=== PATIENT | female | born 1975 | race Caucasian/White ===

== ENCOUNTER 2019-05-15 18:27 | Emergency (ER) | payer OTHER ==
[2019-05-15 22:20] LABS: ABS Lymphocytes 1.7 10^3/ul (1.0-4.8); ABS Monocytes 0.6 10^3/ul (0-0.8); ABS Neutrophils 4.4 10^3/ul (1.5-7.7); Eosinophil % 0.1 %; Hematocrit 37 % (35-47); Hemoglobin 11.7 g/dL (12.0-16.0); Lymphocyte % 25.4 %; Mean Corpuscular HGB Conc 31 g/dL (31-36); Mean Corpuscular Hemoglobin 28 pg (27-31); Mean Corpuscular Volume 88 fL (80-97); Nucleated Red Blood Cells % 0.2; Red Blood Count 4.27 10^6 /uL (3.70-4.87); Red Cell Distribution Width 18 % (10-15); White Blood Count 6.7 10^3/uL (3.5-10.8)
[2019-05-15 22:30] LABS: Albumin 3.6 g/dL (3.2-5.2); Calcium 8.7 mg/dL (8.6-10.3); Potassium 4.4 mmol/L (3.5-5.0); Total Bilirubin 0.2 mg/dL (0.2-1.0)
[2019-05-15 22:36] LABS: Albumin/Globulin Ratio 1.3 (1-3); BUN/Creatinine Ratio 21.3 (8-20); EGFR African American 55.3 (>60); EGFR Non-African American 45.7 (>60); Globulin 2.8 g/dL (2-4); Total Protein 6.4 g/dL (6.4-8.9)
[2019-05-15 22:38] LABS: Platelet Count Platelets clumped. 10^3/uL (150-450)
[2019-05-15 22:47] LABS: Troponin I 0.01 ng/mL (<0.04)
[2019-05-15 22:51] LABS: HCG Pregnancy 1.34 mIU/mL
--- NOTE | 2019-05-15 23:02 | ED ---
Syncope/Near Syncope - HPI Summary HPI Summary: Pt is a 44 y/o F presenting to the ED with a chief complaint of syncope. Per the pts boyfriend, she has been zoning out as well as spontaneously falling asleep intermittently over the past week. Pt states that she is not aware when this happens, and her boyfriend states she will stay in this state until awoken by him. When she does wake up, she is very confused. The pt reports edema in her R foot, numbness in lips, severe R-sided flank pain worsening over the past week, and feeling feverish. She denies trauma to the R foot. 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 - History Of Current Complaint Chief Complaint: EDSyncope Time Seen by Provider: 05/15/19 21:57 Hx Obtained From: Patient, Family/Emanations Analysis Technician - boyfriend Onset/Duration: Sudden Onset, Lasting Minutes Timing: Minutes Context: Other - all variable d/t frequency/variation of episodes. Activity At Onset: At Rest Associated Head Trauma: No Aggravating Factor(s): Nothing Alleviating Factor(s): Spontaneous Resolution Associated Signs And Symptoms: Numbness - lips, Other - edema R foot PMH/Surg Hx/FS Hx/Imm Hx Previously Healthy: Yes Cardiovascular History: Reports: Hx Hypertension, Hx Supraventricular Ventricular Tachycardia Respiratory History: Reports: Hx Asthma History: Reports: Hx Chronic Renal Failure Musculoskeletal History: Reports: Other Musculoskeletal History - L-sided below knee amputation Neurological History: Reports: Other Neuro Impairments/Disorders - spina bifida - Surgical History Surgical History: Yes Infectious Disease History: No Infectious Disease History: Reports: Hx of Known/Suspected MRSA Denies: Traveled Outside the [place] in Last 30 Days - Family History Known Family History: Negative: Diabetes - Social History Alcohol Use: Occasionally Hx Substance Use: Yes Substance Use Type: Reports: Marijuana Hx Tobacco Use: Yes Smoking Status (MU): Heavy Every Day Tobacco Smoker Review of Systems Positive: flank pain - right Positive: Edema - R foot. Negative: Other - trauma to R foot Neurological: Other - confusion Positive: Numbness - lips, Syncope All Other Systems Reviewed And Are Negative: Yes Physical Exam - Summary Physical Exam Summary: Constitutional: Well-developed, Well-nourished, Alert. (-) Distressed Skin: Warm, Dry HENT: Normocephalic; Atraumatic Eyes: Conjunctiva normal Neck: Musculoskeletal ROM normal neck. (-) JVD, (-) Stridor, (-) Tracheal deviation Cardio: Rhythm regular, rate normal, Heart sounds normal; Intact distal pulses; Radial pulses are 2+ and symmetric. (-) Murmur Pulmonary/Chest wall: Effort normal. (-) Respiratory distress, (-) Wheezes, (-) Rales Abd: Soft, (-) tenderness, (-) Distension, (-) Guarding, (-) Rebound Musculoskeletal: (-) Edema Lymph: (-) Cervical adenopathy Neuro: Alert, Oriented x3 Psych: Mood and affect Normal Triage Information Reviewed: Yes Vital Signs On Initial Exam: Initial Vitals Temp Pulse Resp BP Pulse Ox 98 F 77 18 137/88 98 05/15/19 18:29 05/15/19 18:29 05/15/19 18:29 05/15/19 18:29 05/15/19 18:29 Vital Signs Reviewed: Yes - Kwan Coma Scale Best Eye Response: 4 - Spontaneous Best Motor Response: 6 - Obeys Commands Best Verbal Response: 5 - Oriented Coma Scale Total: 15 Procedures - Sedation Patient Received Moderate/Deep Sedation with Procedure: No Diagnostics - Vital Signs Vital Signs Temp Pulse Resp BP Pulse Ox 05/15/19 18:29 98 F 77 18 137/88 98 - Laboratory Lab Results: Lab Results 05/15/19 05/15/19 05/15/19 Range/Units 21:57 22:04 22:07 WBC 6.7 (3.5-10.8) 10^3/uL RBC 4.27 (3.70-4.87) 10^6 /uL Hgb 11.7 L (12.0-16.0) g/dL Hct 37 (35-47) % MCV 88 (80-97) fL MCH 28 (27-31) pg MCHC 31 (31-36) g/dL RDW 18 H (10-15) % Plt Count Platelets clumped. H (150-450) 10^3/uL MPV Not Reportable Neut % (Auto) 65.5 % Lymph % (Auto) 25.4 % Harmon % (Auto) 8.6 % Eos % (Auto) 0.1 % Baso % (Auto) 0.4 % Absolute Neuts (auto) 4.4 (1.5-7.7) 10^3/ul Absolute Lymphs (auto) 1.7 (1.0-4.8) 10^3/ul Absolute Monos (auto) 0.6 (0-0.8) 10^3/ul Absolute Eos (auto) 0.0 (0-0.6) 10^3/ul Absolute Basos (auto) 0.0 (0-0.2) 10^3/ul Absolute Nucleated RBC 0.0 10^3/ul Nucleated RBC % 0.2 Sodium 142 (135-145) mmol/L Potassium 4.4 (3.5-5.0) mmol/L Chloride 118 H (101-111) mmol/L Carbon Dioxide 20 L (22-32) mmol/L Anion Gap 4 (2-11) mmol/L BUN 27 H (6-24) mg/dL Creatinine 1.27 H (0.51-0.95) mg/dL Est GFR ( Amer) 55.3 (>60) Est GFR (Non-Af Amer) 45.7 (>60) BUN/Creatinine Ratio 21.3 H (8-20) Glucose 94 (70-100) mg/dL Calcium 8.7 (8.6-10.3) mg/dL Total Bilirubin 0.20 (0.2-1.0) mg/dL AST 10 L (13-39) U/L ALT 7 (7-52) U/L Alkaline Phosphatase 86 (34-104) U/L Troponin I 0.01 (<0.04) ng/mL B-Natriuretic Peptide 15 (<=100) pg/mL Total Protein 6.4 (6.4-8.9) g/dL Albumin 3.6 (3.2-5.2) g/dL Globulin 2.8 (2-4) g/dL Albumin/Globulin Ratio 1.3 (1-3) Beta HCG, Quant 1.34 mIU/mL Result Diagrams: 05/15/19 22:07 05/15/19 21:57 Lab Statement: Any lab studies that have been ordered have been reviewed, and results considered in the medical decision making process. - CT Brain CT CT Interpretation Completed By: Radiologist Summary of CT Findings: Right frontal approach ventriculostomy catheter is terminating in the left frontal horn just to left of the midline. Bilateral lateral ventricles and third ventricles are enlarged. Fourth ventricle is slitlike. Findings are concerning for hydrocephalus.Comparison with prior studies is recommended. Left suboccipital decompression surgery. 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 No evidence of acute infarct. No midline shift. ED physician has reviewed this report. - EKG 1952 Cardiac Rate: NL - 76bpm EKG Rhythm: 1st Degree HB ST Segment: Normal Ectopy: None Summary of EKG Findings: EKG at 1952 shows NSR at 76bpm with biphasic T-wave in v2 and 1st degree heart block. Re-Evaluation - Re-Evaluation 1st re-eval Re-Evaluation Time: 01:00 Change: Unchanged Comment: I discussed the plan with the patient after speaking with Dr. Roland. She states that her last CT scan of her brain was done in [place], [place], for comparison. However, she does not want to stay in the hospital, as she has to go to court in the morning for a child custody case. If we cannot access her medical records within the next 30 minutes, she states she will come back in the morning after her court case. 2nd re-eval Re-Evaluation Time: 01:30 Change: Unchanged Comment: I spoke with staff at the hospital in [place] where her last CT was done. Pt's CT scan is unchanged from prior. Course/Dx Course Of Treatment: Patient is here with episodes of possible absence seizure activity. Patient had no episodes while in the ED. Patient is new to town from [place]. Patient had blood or performed which is grossly unremarkable. Patient had a remote EKG. Patient had a CT scan which showed hydrocephalus with a CHIP TUNER shunt present. Per patient, her last CT scan was in [facility]. Patient gave me permission to call the physician in the emergency department at that hospital and the CT read was read to me by them. Patient had a CT scan in 2009 which showed identical results to her one today. Neurology was called and recommended admission for EEG. Patient had Court in the morning for child custody and did not want to be admitted. Patient is planning to come back for reevaluation following her court case. And patient - Diagnoses Provider Diagnoses: Seizure Discharge ED - Sign-Out/Discharge Documenting (check all that apply): Patient Departure - Discharge Plan Condition: Stable Disposition: HOME Patient Education Materials: New-Onset Seizure in Adults (ED) Referrals: Care [facility] [Outside] Additional Instructions: Please contact [facility] within the next 1-3 days to find a primary care provider in the area that you can further follow up with about this issue. Come back to the emergency department with any new or worsening symptoms, such as intractable vomiting, one-sided weakness, or increased severity or frequency of these episodes. - Billing Disposition and Condition Condition: STABLE Disposition: Home - Attestation Statements Document Initiated by Scribe: Yes Documenting Scribe: Pam Simmons Provider For Whom Kareemibe is Documenting (Include Credential): Dannie Tong MD. Scribe Attestation: Pam Islas, scribed for Dannie Tong MD. on 05/16/19 at 0436. Scribe Documentation Reviewed: Yes Provider Attestation: The documentation as recorded by the scribe, Pam Simmons accurately reflects the service I personally performed and the decisions made by me, Dannie Tong MD. Status of Scribe Document: Viewed Consult Consult: [id number] - I spoke with Dr. Roland about the pt's present condition. He recommended trying to get her medical records from [place], [place]. If I'm unable to obtain the medical records, the pt should be admitted to [facility] to try and get the records tomorrow, during the day. If anything with the patient changes during the course of her ED stay, she should be transferred to a higher level of care facility.
[2019-05-16 01:41] VITALS: BP 121/81
== END 2019-05-16 01:56 | disposition home or self-care (01) ==
LOC: ED 18:27
DX: R56.9 Unspecified convulsions (principal); I10 Essential (primary) hypertension; I47.1 Supraventricular tachycardia; J45.909 Unspecified asthma, uncomplicated; F17.200 Nicotine dependence, unspecified, uncomplicated; Z93.6 Other artificial openings of urinary tract status; Z89.511 Acquired absence of right leg below knee
CPT/HCPCS: 36415; 70450; 80053; 83880; 84484; 84702; 85025; 93005; 99283

== ENCOUNTER 2019-07-30 17:52 | Emergency (ER) | payer MEDICARE, OTHER ==
[2019-07-30] MEDS ORDERED: NS 0.9% 1000 ML** 1,000 ML IV ONE (18:48)
--- NOTE | 2019-07-30 18:50 | ED ---
Abdominal Pain/Female - HPI Summary HPI Summary: 44-year-old female with significant past medical history of spina bifida, left below the knee at the patient, kidney stones, right sided urostomy with stent replaced in March 2019 presents the emergency department today complaining of right flank pain. Patient states her right kidney function is at 15%. Patient endorses 7 out of 10 burning right flank pain which does not radiate with associated nausea. Patient states she felt warm yesterday but does not sure if she has a fever. Patient denies chest pain, abdominal pain, shortness of breath , vomiting, diarrhea, pain with urination, rash. - History of Current Complaint Chief Complaint: EDUrogenitalProblems Stated Complaint: KIDNEY ISSUES/PAIN PER PT Time Seen by Provider: 07/30/19 18:29 Hx Obtained From: Patient Onset/Duration: Sudden Onset, Lasting Hours Timing: Constant Severity Initially: Severe Severity Currently: Severe Pain Intensity: 7 Pain Scale Used: 0-10 Numeric Location: Flank Radiates: No Character: Sharp Aggravating Factor(s): Movement Alleviating Factor(s): Position Associated Signs and Symptoms: Positive: Back Pain, Nausea. Negative: Diaphoresis, Fever, Chest Pain, Vomiting Allergies/Adverse Reactions: Allergies Allergy/AdvReac Type Severity Reaction Status Date / Time acetaminophen [From Tylenol] Allergy GI Upset Verified 07/30/19 18:00 iodine Allergy Anaphylatic Verified 07/30/19 18:00 Shock latex Allergy Swelling Verified 07/30/19 18:00 morphine Allergy Itching Verified 07/30/19 18:00 pregabalin [From Lyrica] Allergy Swelling Verified 07/30/19 18:00 Sulfa (Sulfonamide Allergy Hives Verified 07/30/19 18:00 Antibiotics) Home Medications: Home Medications Metoprolol Succinate 07/30/19 [History] Nexium 50 mg PO 07/30/19 [History] PMH/Surg Hx/FS Hx/Imm Hx Cardiovascular History: Reports: Hx Hypertension Respiratory History: Reports: Hx Asthma History: Reports: Hx Chronic Renal Failure Musculoskeletal History: Reports: Other Musculoskeletal History - L-sided below knee amputation Neurological History: Reports: Other Neuro Impairments/Disorders - spina bifida Infectious Disease History: No Infectious Disease History: Reports: Hx of Known/Suspected MRSA Denies: Traveled Outside the [place] in Last 30 Days - Family History Known Family History: Negative: Diabetes - Social History Alcohol Use: Occasionally Hx Substance Use: Yes Substance Use Type: Reports: Marijuana Hx Tobacco Use: Yes Smoking Status (MU): Heavy Every Day Tobacco Smoker Review of Systems Constitutional: Negative Eyes: Negative ENT: Negative Cardiovascular: Negative Respiratory: Negative Positive: Nausea. Negative: Abdominal Pain, Vomiting Positive: flank pain, pain. Negative: dysuria, frequency Musculoskeletal: Negative Skin: Negative Neurological: Negative Psychological: Normal All Other Systems Reviewed And Are Negative: Yes Physical Exam - Summary Physical Exam Summary: Patient's abdomen is soft and nontender. Urostomy as noted on the right lower abdomen. No erythema or induration is appreciated surrounding the urostomy stoma. Patient has right CVA tenderness. Triage Information Reviewed: Yes Vital Signs On Initial Exam: Initial Vitals Temp Pulse Resp BP Pulse Ox 98.0 F 89 16 127/95 99 07/30/19 17:54 07/30/19 17:54 07/30/19 17:54 07/30/19 17:54 07/30/19 17:54 Vital Signs Reviewed: Yes Appearance: Positive: Well-Appearing, No Pain Distress, Well-Nourished Skin: Positive: Warm, Skin Color Reflects Adequate Perfusion Eyes: Positive: EOMI, MITESH Respiratory/Lung Sounds: Positive: Clear to Auscultation, Breath Sounds Present Cardiovascular: Positive: RRR, S1, S2 Abdomen Description: Positive: Nontender, Soft, CVA Tenderness (R). Negative: CVA Tenderness (L), Distended, Guarding Bowel Sounds: Positive: Present Musculoskeletal: Positive: Strength/ROM Intact Neurological: Positive: Sensory/Motor Intact, Alert, Oriented to Person Place, Time, Normal Gait, Speech Normal Psychiatric: Positive: Normal AVPU Assessment: Alert Procedures - Sedation Patient Received Moderate/Deep Sedation with Procedure: No Diagnostics - Vital Signs Vital Signs Temp Pulse Resp BP Pulse Ox 07/30/19 17:54 98.0 F 89 16 127/95 99 - Laboratory Result Diagrams: 07/30/19 19:00 07/30/19 19:00 Lab Statement: Any lab studies that have been ordered have been reviewed, and results considered in the medical decision making process. Abdominal Pain Fem Course/Dx - Course Course Of Treatment: Patient was evaluated in the emergency department today for right flank pain. Patient seen and examined her vitals are stable and she was afebrile. Patient was given 1 mg of Dilaudid for pain medication as she was allergic to morphine. Labs returned showing normal white blood cell count at 6.1. Mild elevation in C-reactive protein at 8.02. No anemia, mild elevations and renal function however the specific baseline. Urinalysis positive for urinary tract infection with no evidence of contamination, positive nitrates, positive leukocyte esterase, positive white blood cell. 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 Bilateral nephrolithiasis as well as bilateral simple ovarian cysts. Patients urostomy is draining and this stenosis is considered unnecessary other immediate intervention. Patient is afebrile and has no white blood cell count and will be treated for urinary tract infection with ciprofloxacin given her history. Patient is to follow-up with urology in 3-5 days for further evaluation and management of her symptoms. - Diagnoses Differential Diagnosis: Positive: Appendicitis, Renal Colic, Urinary Tract Infection Provider Diagnoses: Urinary tract infection - Provider Notifications Discussed Care Of Patient With: Salvador Goff ED - Sign-Out/Discharge Documenting (check all that apply): Patient Departure - Discharge Plan Condition: Stable Disposition: HOME Prescriptions: Ciprofloxacin TAB* [Cipro 500 MG TAB*] 500 mg PO BID #14 tab oxyCODONE TAB* [Roxycodone TAB 5 mg*] 5 mg PO Q6H PRN #6 tab MDD 4 PRN Reason: Pain - Severe Patient Education Materials: Urinary Tract Infection in (ED) Referrals: No Primary Care Phys,NOPCP [Primary Care Provider] - Lan Valencia MD [Medical Doctor] - 3 Days Additional Instructions: He was seen in the emergency department today and diagnosed with urinary tract infection. Due to your complicated history I have given you an antibiotic for ciprofloxacin which is to be taken twice daily for 7 days. Please follow-up with urology in 3-5 days for further evaluation and management of your symptoms. Please return to the emergency department immediately if you develop any new or worsening symptoms. - Billing Disposition and Condition Condition: STABLE Disposition: Home
[2019-07-30] MEDS ORDERED: HYDROmorphone INJ* 0.5 MG/0.5 ML SYRINGE IV ONE (19:35)
[2019-07-30 19:38] LABS: Albumin 3.8 g/dL (3.2-5.2); Albumin/Globulin Ratio 1.1 (1-3); BUN/Creatinine Ratio 25.2 (8-20); C Reactive Protein 18.02 mg/L (<8.01); Calcium 8.6 mg/dL (8.6-10.3); EGFR African American 53.4 (>60); EGFR Non-African American 44.1 (>60); Globulin 3.4 g/dL (2-4); Magnesium 2.2 mg/dL (1.9-2.7); Potassium 3.7 mmol/L (3.5-5.0); Total Bilirubin 0.3 mg/dL (0.2-1.0); Total Protein 7.2 g/dL (6.4-8.9)
[2019-07-30 19:43] LABS: HCG Pregnancy 4.7 mIU/mL
[2019-07-30 19:53] LABS: ABS Lymphocytes 1.8 10^3/ul (1.0-4.8); ABS Monocytes 0.4 10^3/ul (0-0.8); ABS Neutrophils 3.8 10^3/ul (1.5-7.7); Hematocrit 42 % (35-47); Hemoglobin 13.7 g/dL (12.0-16.0); Lymphocyte % 29.1 %; Mean Corpuscular HGB Conc 33 g/dL (31-36); Mean Corpuscular Hemoglobin 29 pg (27-31); Mean Corpuscular Volume 88 fL (80-97); Mean Platelet Volume 8.9 fL (7.4-10.4); Nucleated Red Blood Cells % 0.1; Platelet Count 192 10^3/uL (150-450); Red Blood Count 4.71 10^6 /uL (3.70-4.87); Red Cell Distribution Width 19 % (10-15); White Blood Count 6.1 10^3/uL (3.5-10.8)
[2019-07-30 20:00] LABS: Urine Appearance Turbid; Urine Bilirubin Negative (Negative); Urine Blood 1+ (Negative); Urine Color Amber; Urine Glucose Negative (Negative); Urine Ketones Negative (Negative); Urine Nitrite Positive (Negative); Urine Protein 2+(100 mg/dL) (Negative); Urine Specific Gravity 1.011 (1.010-1.030); Urine Urobilinogen Negative (Negative)
[2019-07-30 20:04] LABS: Urine Bacteria 1+ (Absent); Urine Red Blood Cell 2+(6-10/hpf) (Absent); Urine White Blood Cell 3+(>20/hpf) (Absent)
[2019-07-30] MEDS ORDERED: Ciprofloxacin TAB* 500 MG PO ONE (20:34)
[2019-07-30 22:09] VITALS: BP 107/80
--- NOTE | 2019-08-03 05:32 | ED ---
Imaging and Labs Follow Up Follow Up Type: Labs/Cultures Labs/Culture Result: Providencia rettgeri and klebsiella pneumonia Patient Communication/Plan: pt given cipro prior to discharge Patient Communication/Plan: Urine culture shows supersensitive to organism, nothing further at this time Provider Diagnoses: Urinary tract infection
== END 2019-07-30 22:09 | disposition home or self-care (01) ==
LOC: ED 17:52
DX: N39.0 Urinary tract infection, site not specified (principal); I12.9 Hypertensive chronic kidney disease with stage 1 through stage 4 chronic kidney disease, or unspecified chronic kidney disease; N18.9 Chronic kidney disease, unspecified; J45.909 Unspecified asthma, uncomplicated; F17.200 Nicotine dependence, unspecified, uncomplicated; Z88.5 Allergy status to narcotic agent; Z88.2 Allergy status to sulfonamides; Z88.8 Allergy status to other drugs, medicaments and biological substances; Z88.6 Allergy status to analgesic agent; Z91.041 Radiographic dye allergy status; Z91.040 Latex allergy status
CPT/HCPCS: 36415; 74176; 80053; 81003; 81015; 83690; 83735; 84702; 85025; 86140; 87077; 87086; 87186; 96361; 96374; 99283; A9270-GY; J1170